=== PATIENT | female | born 1990 | race American Indian/Alaskan Native ===

== ENCOUNTER 2018-10-15 12:37 | Emergency (ER) | payer OTHER, MEDICAID ==
[2018-10-15] MEDS ORDERED: DELTASONE PO ONE (14:28)
[2018-10-15] MEDS ORDERED: IBUPROFEN PO ONE (14:28)
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
[2018-10-15 16:59] VITALS: BP 119/78
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
== END 2018-10-15 16:59 | disposition home or self-care (01) ==
LOC: ED 12:37
DX: M54.2 Cervicalgia (principal); M54.89 Other dorsalgia; F12.10 Cannabis abuse, uncomplicated; Z79.899 Other long term (current) drug therapy; V89.2XXA Person injured in unspecified motor-vehicle accident, traffic, initial encounter; Y93.89 Activity, other specified; Y92.410 Unspecified street and highway as the place of occurrence of the external cause; Y99.8 Other external cause status
CPT/HCPCS: 72040; 99283; J7512

== ENCOUNTER 2019-05-23 23:04 | Emergency (ER) | payer MEDICAID ==
[2019-05-23] MEDS ORDERED: ACETAMINOPHEN 325 MG TAB ONE (23:40)
[2019-05-23] MEDS ORDERED: ACETAMINOPHEN 325 MG TAB PO ONE (23:44)
--- NOTE | 2019-05-24 01:16 | Emergency Department Report ---
- General Chief Complaint: Upper Respiratory Infection Stated Complaint: COLD SWEAT/ALBRECHT/BACKACHE/FEVER Time Seen by Provider: 05/24/19 00:22 Source: patient Mode of arrival: Ambulatory Limitations: No Limitations - History of Present Illness Initial Comments: Patient is a 28-year-old female presents emergency room with complaints of flulike symptoms that began this morning. She has associated fever, chills, generalized body ache, mild cough, one episode of vomiting. She denies any diarrhea, ear pain, sore throat, productive cough. Her child is also being evaluated in the emergency department and tested positive for the flu. She denies any recent travel. She has not been in contact with anyone who tested positive for COVID 19. No past medical history. No allergies to medications. Last menstrual cycle 2 weeks ago. - Related Data Previous Rx's Medication Instructions Recorded Last Taken Type Cyclobenzaprine [Flexeril] 10 mg PO TID PRN #10 tablet 10/15/18 Unknown Rx Ibuprofen [Motrin] 800 mg PO Q8HR PRN #30 tablet 10/15/18 Unknown Rx predniSONE [Deltasone] 20 mg PO DAILY #5 tablet 10/15/18 Unknown Rx Ondansetron [Zofran Odt] 4 mg PO Q8HR PRN #14 tab.rapdis 05/24/19 Unknown Rx Oseltamivir [Tamiflu] 75 mg PO BID 5 Days #10 cap 05/24/19 Unknown Rx Allergies Allergy/AdvReac Type Severity Reaction Status Date / Time No Known Allergies Allergy Verified 03/07/18 09:15 ED Review of Systems ROS: Stated complaint: COLD SWEAT/ALBRECHT/BACKACHE/FEVER Other details as noted in HPI Comment: All other systems reviewed and negative ED Past Medical Hx - Past Medical History Previous Medical History?: No Hx Hypertension: No Hx Diabetes: No Hx Deep Vein Thrombosis: No Hx Renal Disease: No Hx Sickle Cell Disease: No Hx Arthritis: No Hx Seizures: No Hx Asthma: No Hx HIV: No - Surgical History Past Surgical History?: Yes Additional Surgical History: x4 - Social History Smoking Status: Never Smoker Substance Use Type: Marijuana - Medications Home Medications: Home Medications Medication Instructions Recorded Confirmed Last Taken Type Cyclobenzaprine [Flexeril] 10 mg PO TID PRN #10 tablet 10/15/18 Unknown Rx Ibuprofen [Motrin] 800 mg PO Q8HR PRN #30 tablet 10/15/18 Unknown Rx predniSONE [Deltasone] 20 mg PO DAILY #5 tablet 10/15/18 Unknown Rx Ondansetron [Zofran Odt] 4 mg PO Q8HR PRN #14 tab.rapdis 05/24/19 Unknown Rx Oseltamivir [Tamiflu] 75 mg PO BID 5 Days #10 cap 05/24/19 Unknown Rx ED Physical Exam - General Limitations: No Limitations General appearance: alert, in no apparent distress - Head Head exam: Present: atraumatic, normocephalic - Eye Eye exam: Present: normal appearance - ENT ENT exam: Present: normal orophraynx, mucous membranes moist, TM's normal bilaterally, normal external ear exam, other (no sinus ttp bilaterally) - Respiratory Respiratory exam: Present: normal lung sounds bilaterally. Absent: respiratory distress, wheezes, rales, rhonchi, stridor, chest wall tenderness, accessory muscle use, decreased breath sounds, prolonged expiratory - Cardiovascular Cardiovascular Exam: Present: regular rate, normal rhythm, normal heart sounds. Absent: systolic murmur, diastolic murmur, rubs, gallop - Neurological Exam Neurological exam: Present: alert, oriented X3 - Psychiatric Psychiatric exam: Present: normal affect, normal mood - Skin Skin exam: Present: warm, dry, intact ED Course Vital Signs 05/23/19 05/24/19 23:17 01:50 Temperature 101.3 F H 99.4 F Pulse Rate 111 H 91 H Respiratory 20 17 Rate Blood Pressure 117/74 Blood Pressure 110/70 [Right] O2 Sat by Pulse 98 99 Oximetry ED Medical Decision Making - Lab Data Lab Results 05/23/19 Range/Units Unknown Influenza A (Rapid) Negative (Negative) Influenza B (Rapid) Negative (Negative) Vital Signs 05/23/19 05/24/19 23:17 01:50 Temperature 101.3 F H 99.4 F Pulse Rate 111 H 91 H Respiratory 20 17 Rate Blood Pressure 117/74 Blood Pressure 110/70 [Right] O2 Sat by Pulse 98 99 Oximetry - Medical Decision Making Patient is a 28-year-old female presents emergency room with complaints of flulike symptoms that began this morning. She has associated fever, chills, generalized body ache, mild cough, one episode of vomiting. She denies any diarrhea, ear pain, sore throat, productive cough. Her child is also being evaluated in the emergency department right now and tested positive for the flu. She denies any recent travel. She has not been in contact with anyone who tested positive for COVID 19. No past medical history. No allergies to medica tions. Last menstrual cycle 2 weeks ago. Initial vitals with elevated temperature and heart rate which improved upon repeat. No abnormality on physical examination as documented in chart. Rapid flu was negative. Patient has clinical signs and symptoms of flu and has a sick contact with a positive flu test. Patient is within the 48-hour range for Tamiflu. Patient given prescription for Tamiflu and Zofran. advised pt to please take medication as prescribed. Increase your fluid intake over the next several days. May alternate ibuprofen that Tylenol every 4-6 hours as needed for fever or body aches. May take [id number] Mucinex or TheraFlu. Please stay at home until you are symptom-free and fever free for 24 hours. If you cough or sneeze please do it in a napkin and then throw it away and immediately wash your hands. Please wash your hands frequently. Avoid contact with others. Follow-up with a primary care doctor for reexamination. Return to emergency room immediately for any new or worsening symptoms. - Differential Diagnosis Influenza, URI, PNA, viral syndrome, otitis, pharyngitis, sinusitis Critical care attestation.: If time is entered above; I have spent that time in minutes in the direct care of this critically ill patient, excluding procedure time. ED Disposition Clinical Impression: Influenza Disposition: DC-01 TO HOME OR SELFCARE Is pt being admited?: No Does the pt Need Aspirin: No Condition: Stable Instructions: Influenza (ED) Additional Instructions: Please take medication as prescribed. Increase your fluid intake over the next several days. May alternate ibuprofen that Tylenol every 4-6 hours as needed for fever or body aches. May take [id number] Mucinex or TheraFlu. Please stay at home until you are symptom-free and fever free for 24 hours. If you cough or sneeze please do it in a napkin and then throw it away and immediately wash your hands. Please wash your hands frequently. Avoid contact with others. Follow-up with a primary care doctor for reexamination. Return to emergency room immediately for any new or worsening symptoms. Prescriptions: Oseltamivir [Tamiflu] 75 mg PO BID 5 Days #10 cap Ondansetron [Zofran Odt] 4 mg PO Q8HR PRN #14 tab.rapdis PRN Reason: Nausea And Vomiting Referrals: JANICE LEIGH MD [Primary Care Provider] - 2-3 Days Time of Disposition: 01:14 Print Language: ARMENIAN
[2019-05-24 02:14] VITALS: BP 110/70
== END 2019-05-24 01:50 | disposition home or self-care (01) ==
LOC: ED 23:04
DX: J11.1 Influenza due to unidentified influenza virus with other respiratory manifestations (principal); R50.9 Fever, unspecified; L98.2 Febrile neutrophilic dermatosis [Sweet]; F12.10 Cannabis abuse, uncomplicated; Z79.899 Other long term (current) drug therapy; Z98.890 Other specified postprocedural states
CPT/HCPCS: 87400; 99283